=== PATIENT | female | born 1945 | race Caucasian/White ===

== ENCOUNTER → 2017-01-10 | Outpatient (CLI) | payer MEDICARE, OTHER ==
[~2017-01-10] MED LIST: OMNIPAQUE 350 MG/ML, 100ML BOTTLE ONE
== END | disposition home or self-care (01) ==
LOC: CFH 13:18
DX: M19.011 Primary osteoarthritis, right shoulder (principal); R16.1 Splenomegaly, not elsewhere classified; N28.1 Cyst of kidney, acquired; N26.1 Atrophy of kidney (terminal); K86.89 Other specified diseases of pancreas; M47.892 Other spondylosis, cervical region; Z87.19 Personal history of other diseases of the digestive system
CPT/HCPCS: 73200; 74170; Q9967

== ENCOUNTER → 2017-02-09 | Outpatient (CLI) | payer MEDICARE, OTHER ==
[~2017-02-09] MED LIST changes: +ACYC-114 PO; +ALLO100T30 PO; +CARB15DR EACHEYE; +DIFL5DRO LEFTEYE; +ERGO500017 PO; +FURO20TA3 PO; +HYDR2CRE TP; +KETO15CR2 TP; +LIGH1DRO EACHEYE; +METH1TAB13 PO; +NADO20TA PO; -OMNIPAQUE 350 MG/ML, 100ML BOTTLE ONE; +PANT40TA3 PO; +SITA25TA PO; +SODI15DR6 EACHEYE; +SODI3.5O4 EACHEYE; +TACR1CAP4 PO; +URSO500T8 PO
[2017-02-09 15:09] LABS: BLOOD UREA NITROGEN 32 mg/dL (7-18)
[2017-02-09 15:12] LABS: ASPARTATE AMINO TRANSFERASE 21 U/L (15-37)
== END | disposition home or self-care (01) ==
LOC: STAR 13:32
PROVIDERS: ATTEND Internal Medicine
DX: Z01.818 Encounter for other preprocedural examination (principal); R93.5 Abnormal findings on diagnostic imaging of other abdominal regions, including retroperitoneum; I10 Essential (primary) hypertension; E11.9 Type 2 diabetes mellitus without complications; K21.9 Gastro-esophageal reflux disease without esophagitis; E78.5 Hyperlipidemia, unspecified
CPT/HCPCS: 36415; 80053; 93005

== ENCOUNTER 2017-02-13 10:16 | Day surgery (SDC) | payer MEDICARE, OTHER ==
[~2017-02-13] VITALS: Ht 154.9 cm; Wt 90.5 kg
[2017-02-13] MEDS ORDERED: LACTATED RINGERS 1,000 ML IV SCH (11:43)
[2017-02-13 11:52] VITALS: BP 185/93
[2017-02-13] MEDS ORDERED: FENTANYL PF 100 MCG/2ML IV PRN (12:30)
[2017-02-13] MEDS ORDERED: LABETALOL 5MG/ML, 20ML IV PRN (12:30)
[2017-02-13] MEDS ORDERED: HYDROmorphone 1 MG/ML, 1ML IV PRN (12:30)
[2017-02-13] MEDS ORDERED: hydrALAzine 20 MG/ML, 1ML IV PRN (12:30)
[2017-02-13] MEDS ORDERED: OXYcodone 5 MG/5 ML ORAL.SOL UDC PO PRN (12:30)
[2017-02-13] MEDS ORDERED: HYDROcodone/APAP 7.5-325MG/15ML UDC PO PRN (12:30)
[2017-02-13] MEDS ORDERED: ONDANSETRON 2MG/ML, 2ML ONE (12:41)
[2017-02-13] MEDS ORDERED: hydrALAzine 20 MG/ML, 1ML ONE (13:48)
== END 2017-02-13 15:30 ==
LOC: OUT 10:16
PROVIDERS: ATTEND Internal Medicine
DX: I85.00 Esophageal varices without bleeding (principal); K86.2 Cyst of pancreas; K31.9 Disease of stomach and duodenum, unspecified; K31.89 Other diseases of stomach and duodenum; K21.9 Gastro-esophageal reflux disease without esophagitis; I10 Essential (primary) hypertension; D64.9 Anemia, unspecified; Z87.39 Personal history of other diseases of the musculoskeletal system and connective tissue; M10.9 Gout, unspecified; E11.9 Type 2 diabetes mellitus without complications; E78.5 Hyperlipidemia, unspecified; Z98.890 Other specified postprocedural states; Z98.51 Tubal ligation status; Z94.4 Liver transplant status; Z96.659 Presence of unspecified artificial knee joint
CPT/HCPCS: 43259; 82962; J0360; J2405; J7120

== ENCOUNTER → 2017-08-02 | Outpatient (CLI) | payer MEDICARE, OTHER | END | disposition home or self-care (01) | LOC: CFH 06:49 | PROVIDERS: ATTEND Internal Medicine | DX: N26.1 Atrophy of kidney (terminal) (principal); R16.1 Splenomegaly, not elsewhere classified; K74.3 Primary biliary cirrhosis; Z94.9 Transplanted organ and tissue status, unspecified | CPT/HCPCS: 76700 ==

== ENCOUNTER → 2017-08-15 | Outpatient (CLI) | payer MEDICARE, OTHER | END | disposition home or self-care (01) | LOC: CFH 08:51 | PROVIDERS: ATTEND Family Medicine | DX: Z12.31 Encounter for screening mammogram for malignant neoplasm of breast (principal); Z13.820 Encounter for screening for osteoporosis; N95.9 Unspecified menopausal and perimenopausal disorder | CPT/HCPCS: 77080; 77067 ==

== ENCOUNTER → 2017-09-19 | Outpatient (CLI) | payer MEDICARE, OTHER | END | disposition home or self-care (01) | LOC: CFH 12:50 | PROVIDERS: ATTEND Family Medicine | DX: I50.9 Heart failure, unspecified (principal) | CPT/HCPCS: 71046 ==

== ENCOUNTER → 2017-10-02 | Outpatient (CLI) | payer MEDICARE, OTHER ==
[~2017-10-02] MED LIST changes: -CARB15DR EACHEYE; +CARB15DR3 EACHEYE
== END ==
LOC: CVU 10:28
PROVIDERS: ATTEND Family Medicine
DX: I31.3 Pericardial effusion (noninflammatory) (principal); I10 Essential (primary) hypertension
CPT/HCPCS: 93306

== ENCOUNTER 2017-10-19 14:51 | Inpatient (IN) | payer MEDICARE, OTHER ==
[~2017-10-19] VITALS: Ht 149.9 cm; Wt 89.7 kg
[2017-10-19] MEDS ORDERED: SODIUM CHLORIDE FLUSH 10ML SYR IVF ONE ×2 (15:30→17:30)
[2017-10-19 15:46] LABS: ALANINE AMINOTRANSFERASE 18 U/L (12-78); ALBUMIN 3.1 g/dL (3.4-5.0); ANION GAP 5 mmol/L (5-15); CALCIUM 8.9 mg/dL (8.5-10.1); CHLORIDE 108 mmol/L (98-107)
[2017-10-19 15:51] LABS: ALKALINE PHOSPHATASE 128 U/L (45-117); BILIRUBIN,TOTAL 1.3 mg/dL (0.2-1.0); CREATININE 1.12 mg/dL (0.55-1.02); TOTAL PROTEIN 6.9 g/dL (6.4-8.2); TROPONIN I < 0.015 ng/mL (0.000-0.045)
[2017-10-19 15:59] LABS: INTERNATIONAL NORMALIZED RATIO 0.94 (0.93-1.1); PROTHROMBIN TIME 9.8 Seconds (9.6-11.5)
[2017-10-19 16:09] LABS: BASOPHILS # (AUTO) 0.02 x10^3/uL (0-0.1); BASOPHILS % (AUTO) 0 % (0-1); EOSINOPHILS # (AUTO) 0.23 x10^3/uL (0-0.4); EOSINOPHILS % (AUTO) 4 % (1-7); LYMPHOCYTES # (AUTO) 0.59 x10^3/uL (1-3.4); LYMPHOCYTES % (AUTO) 11 % (22-44); MD MORPH REVIEW ONLY; MEAN CORPUSCULAR HEMOGLOBIN 25.2 pg (27.0-34.8); MEAN CORPUSCULAR HGB CONC 31.3 g/dL (32.4-35.8); MEAN CORPUSCULAR VOLUME 80.5 fL (80-100); MEAN PLATELET VOLUME 10.2 fL (7.4-10.4); MONOCYTES # (AUTO) 0.35 x10^3/uL (0.2-0.8); MONOCYTES % (AUTO) 6 % (2-9); NEUTROPHILS # (AUTO) 4.18 x10^3/uL (1.8-6.8); NEUTROPHILS % (AUTO) 78 % (42-75); PLATELET COUNT 91 x10^3/uL (130-400); RED BLOOD COUNT 4.17 x10^6/uL (3.82-5.3); RED CELL DISTRIBUTION WIDTH 19.1 % (9.6-15.2)
[2017-10-19 16:10] LABS: ANISOCYTOSIS 1+; HYPOCHROMIA 1+; POLYCHROMASIA 1+
[2017-10-19 16:11] LABS: <PLATELET ESTIMATE> DECREASED; LARGE PLATELETS 1+
[2017-10-19] MEDS ORDERED: HYDROCORTISONE TP SCH (18:30)
[2017-10-19] MEDS: ENOXAPARIN 40 MG/0.4 ML SQ SCH (18:30)
[2017-10-19] MEDS ORDERED: ERGOCALCIFEROL 50,000 UNIT CAPSULE PO SCH (18:30)
[2017-10-19] MEDS ORDERED: IODOQUINOL TP SCH (18:30)
[2017-10-19] MEDS ORDERED: ALOE TP SCH (18:30)
[2017-10-19] MEDS ORDERED: hydrALAzine 20 MG/ML, 1ML IVPush PRN (18:30)
[2017-10-19] MEDS ORDERED: TEMPLATE NON-FORMULARY MED. (Carboxymethylcellulose Sodium (Refresh Tears) 1 DROP) EACHEYE PRN ×2 (18:30→21:00)
[2017-10-19] MEDS ORDERED: ONDANSETRON 2MG/ML, 2ML IVPush PRN (18:30)
[2017-10-19 19:17] LABS: FREE T4 (FREE THYROXINE) 1.13 ng/dL (0.76-1.46); THYROID STIMULATING HORMONE 2.51 mIU/L (0.358-3.740)
[2017-10-19 19:28] LABS: HEMOGLOBIN A1C 7.5 % (4.2-6.3)
[2017-10-19] MEDS: ACYCLOVIR 400 MG TABLET PO SCH (20:46)
[2017-10-19 20:51] VITALS: BP 149/81
[2017-10-19] MEDS ORDERED: URSODIOL 250 MG TABLET PO SCH (21:00)
[2017-10-19] MEDS ORDERED: VICTOZA SQ SCH (22:00)
[2017-10-19] MEDS ORDERED: predniSOLONE OPHTH. 1%,1ML OP SCH ×2 (22:00)
[2017-10-19] MEDS: TACROLIMUS 1 MG CAPSULE PO SCH (22:12)
[2017-10-19] MEDS: INSULIN LISPRO 100 UNITS/ML, PEN SQ-INSULIN SCH (22:16)
[2017-10-20 00:01] LABS: CULTURE INDICATED? YES; MICROSCOPIC INDICATED
[2017-10-20 00:44] VITALS: BP 136/75
[2017-10-20] MEDS ORDERED: CEFTRIAXONE PMX 1GM/50ML 50 ML IV SCH (02:00)
[2017-10-20 04:43] LABS: MEAN CORPUSCULAR HEMOGLOBIN 25.8 pg (27.0-34.8); MEAN CORPUSCULAR HGB CONC 31.7 g/dL (32.4-35.8); MEAN CORPUSCULAR VOLUME 81.5 fL (80-100); RED BLOOD COUNT 3.83 x10^6/uL (3.82-5.3); RED CELL DISTRIBUTION WIDTH 20.5 % (9.6-15.2)
[2017-10-20 04:56] LABS: ALBUMIN 2.7 g/dL (3.4-5.0); ANION GAP 5 mmol/L (5-15); CALCIUM 8.7 mg/dL (8.5-10.1); CHLORIDE 110 mmol/L (98-107)
[2017-10-20 05:00] LABS: ALANINE AMINOTRANSFERASE 14 U/L (12-78); ALKALINE PHOSPHATASE 108 U/L (45-117); CHOL/HDL RATIO 3.2; CHOLESTEROL, TOTAL 138 mg/dL (140-239); CREATININE 1.03 mg/dL (0.55-1.02); HDL CHOL % 31 % (28-40); HDL CHOLESTEROL (DIRECT) 43 mg/dL (40-60); LDL CHOLESTEROL,CALCULATED 64 mg/dL (54-169); LDL/HDL RATIO 1.5 (0.5-3.0); TRIGLYCERIDES 154 mg/dL (50-200); VLDL CHOLESTEROL 31 mg/dL (0-25)
[2017-10-20 05:05] LABS: BASOPHILS # (AUTO) 0.05 x10^3/uL (0-0.1); BASOPHILS % (AUTO) 1 % (0-1); EOSINOPHILS # (AUTO) 0.15 x10^3/uL (0-0.4); EOSINOPHILS % (AUTO) 2 % (1-7); LYMPHOCYTES # (AUTO) 0.47 x10^3/uL (1-3.4); LYMPHOCYTES % (AUTO) 8 % (22-44); MD SCAN; MEAN PLATELET VOLUME 9.4 fL (7.4-10.4); MONOCYTES # (AUTO) 0.29 x10^3/uL (0.2-0.8); MONOCYTES % (AUTO) 5 % (2-9); NEUTROPHILS # (AUTO) 5.35 x10^3/uL (1.8-6.8); NEUTROPHILS % (AUTO) 85 % (42-75); PLATELET COUNT 78 x10^3/uL (130-400)
[2017-10-20] MEDS ORDERED: ASPIRIN 81 MG TABLET EC PO SCH (06:00)
[2017-10-20] MEDS: INSULIN LISPRO 100 UNITS/ML, PEN SQ-INSULIN SCH ×4 (07:58→20:51)
[2017-10-20 08:00] VITALS: BP 138/70
[2017-10-20] MEDS: ACYCLOVIR 400 MG TABLET PO SCH (08:01)
[2017-10-20] MEDS: DIFLUPREDNATE LEFTEYE SCH (08:08)
[2017-10-20 08:52] LABS: CREATININE,URINE RANDOM 92.6 mg/dL
[2017-10-20] MEDS ORDERED: ALLOPURINOL 100 MG TABLET PO SCH (09:00)
[2017-10-20] MEDS ORDERED: FUROSEMIDE 40 MG/4 ML IV SCH (09:00)
[2017-10-20] MEDS ORDERED: PANTOPROZOLE 40MG TABLET PO SCH (09:00)
[2017-10-20] MEDS ORDERED: SODIUM CHLORIDE EACHEYE SCH (09:00)
[2017-10-20] MEDS ORDERED: [UNRECOGNIZED DRUG - OTHER] EACHEYE SCH (09:00)
[2017-10-20] MEDS ORDERED: URSODIOL 250 MG TABLET PO SCH (09:00)
[2017-10-20] MEDS ORDERED: METHENAMINE HIPPURATE 1 GM TABLET PO SCH ×3 (09:00→09:30)
[2017-10-20] MEDS ORDERED: VICTOZA 1.8 MG SQ SCH (09:00)
[2017-10-20] MEDS: TACROLIMUS 1 MG CAPSULE PO SCH ×2 (09:30→22:00)
[2017-10-20] MEDS ORDERED: METHENAMINE HIPPURATE 1 GM TABLET PO ONE (10:00)
[2017-10-20 11:24] LABS: CLOSTRIDIUM DIFFICILE ANTIGEN NEGATIVE; CLOSTRIDIUM DIFFICILE TOXIN NEGATIVE (Negative)
[2017-10-20] MEDS: CHLORTHALIDONE 25 MG TABLET PO SCH (11:35)
[2017-10-20 13:00] VITALS: BP 123/75
[2017-10-20] MEDS: CEFTRIAXONE PMX 2GM/50ML 50 ML IV SCH (14:50)
[2017-10-20] MEDS: METOPROLOL TARTRATE 25 MG TABLET PO SCH ×2 (16:22→20:51)
[2017-10-20 16:23] VITALS: BP 120/69
[2017-10-20] MEDS: ENOXAPARIN 40 MG/0.4 ML SQ SCH (16:30)
[2017-10-20] MEDS ORDERED: ALLO300T PO (17:02)
[2017-10-20] MEDS ORDERED: ACYC-114 PO (17:02)
[2017-10-20] MEDS ORDERED: URSO300C27 PO (17:02)
[2017-10-20] MEDS ORDERED: VICTOZA SQ (17:02)
[2017-10-20] MEDS ORDERED: METH1TAB13 PO (17:02)
[2017-10-20] MEDS ORDERED: PRED1DRO LEFTEYE (17:02)
[2017-10-20] MEDS ORDERED: CHOL100011 PO (17:02)
[2017-10-20] MEDS ORDERED: PANT20TA2 PO (17:02)
[2017-10-20] MEDS ORDERED: NADO20TA PO (17:02)
[2017-10-20] MEDS ORDERED: TACR1CAP4 PO (17:02)
[2017-10-20] MEDS ORDERED: URSO250T9 PO (17:02)
[2017-10-20] MEDS: URSODIOL 250 MG TABLET PO SCH (17:09)
[2017-10-20] MEDS: predniSOLONE OPHTH. 1%,1ML OP SCH (18:23)
[2017-10-20 18:42] VITALS: BP 112/69
[2017-10-20] MEDS: VICTOZA 1.8 MG SQ SCH (20:51)
[2017-10-21 02:22] VITALS: BP 124/69
[2017-10-21 05:29] LABS: ALANINE AMINOTRANSFERASE 14 U/L (12-78); ALBUMIN 2.7 g/dL (3.4-5.0); ANION GAP 6 mmol/L (5-15); CALCIUM 8.2 mg/dL (8.5-10.1); CHLORIDE 108 mmol/L (98-107); CREATININE 1.07 mg/dL (0.55-1.02)
[2017-10-21 05:32] LABS: ALKALINE PHOSPHATASE 111 U/L (45-117); BILIRUBIN,TOTAL 0.7 mg/dL (0.2-1.0); TOTAL PROTEIN 6.2 g/dL (6.4-8.2)
[2017-10-21] MEDS: predniSOLONE OPHTH. 1%,1ML OP SCH ×2 (07:00→18:49)
[2017-10-21] MEDS: INSULIN LISPRO 100 UNITS/ML, PEN SQ-INSULIN SCH ×4 (07:00→21:00)
[2017-10-21 08:00] VITALS: BP 129/74
[2017-10-21] MEDS: URSODIOL 250 MG TABLET PO SCH ×2 (08:14→16:06)
[2017-10-21] MEDS: ACYCLOVIR 400 MG TABLET PO SCH ×2 (08:14→16:05)
[2017-10-21] MEDS: PANTOPROZOLE 40MG TABLET PO SCH (08:15)
[2017-10-21] MEDS: CHLORTHALIDONE 25 MG TABLET PO SCH (08:35)
[2017-10-21] MEDS: METOPROLOL TARTRATE 25 MG TABLET PO SCH ×2 (08:35→21:00)
[2017-10-21] MEDS: METHENAMINE HIPPURATE 1 GM TABLET PO SCH (08:51)
[2017-10-21] MEDS: DIFLUPREDNATE LEFTEYE SCH (09:00)
[2017-10-21] MEDS ORDERED: POTASSIUM CHLORIDE 20 MEQ TAB.ER.PRT PO ONE (09:30)
[2017-10-21] MEDS: TACROLIMUS 1 MG CAPSULE PO SCH ×2 (10:00→22:00)
[2017-10-21 14:32] VITALS: BP 121/75
[2017-10-21] MEDS ORDERED: ALLOPURINOL 100 MG TABLET PO SCH (16:00)
[2017-10-21] MEDS: ENOXAPARIN 40 MG/0.4 ML SQ SCH (17:40)
[2017-10-21] MEDS: CEFTRIAXONE PMX 2GM/50ML 50 ML IV SCH (18:48)
[2017-10-21 19:15] VITALS: BP 129/77
[2017-10-21] MEDS: VICTOZA 1.8 MG SQ SCH (21:00)
[2017-10-22 01:12] VITALS: BP 130/78
[2017-10-22 05:30] LABS: MEAN CORPUSCULAR HEMOGLOBIN 26.2 pg (27.0-34.8); MEAN CORPUSCULAR HGB CONC 31.9 g/dL (32.4-35.8); MEAN CORPUSCULAR VOLUME 82.3 fL (80-100); MEAN PLATELET VOLUME 10.3 fL (7.4-10.4); PLATELET COUNT 68 x10^3/uL (130-400); RED BLOOD COUNT 3.72 x10^6/uL (3.82-5.3); RED CELL DISTRIBUTION WIDTH 19.9 % (9.6-15.2)
[2017-10-22 05:34] LABS: ALBUMIN 2.7 g/dL (3.4-5.0); ANION GAP 7 mmol/L (5-15); CALCIUM 9.1 mg/dL (8.5-10.1); CHLORIDE 108 mmol/L (98-107)
[2017-10-22 05:38] LABS: ALANINE AMINOTRANSFERASE 13 U/L (12-78); ALKALINE PHOSPHATASE 107 U/L (45-117); BILIRUBIN,TOTAL 0.6 mg/dL (0.2-1.0)
[2017-10-22 05:58] LABS: BASOPHILS # (AUTO) 0.01 x10^3/uL (0-0.1); BASOPHILS % (AUTO) 0 % (0-1); EOSINOPHILS # (AUTO) 0.28 x10^3/uL (0-0.4); EOSINOPHILS % (AUTO) 5 % (1-7); LYMPHOCYTES # (AUTO) 0.51 x10^3/uL (1-3.4); LYMPHOCYTES % (AUTO) 9 % (22-44); MD SCAN; MONOCYTES # (AUTO) 0.42 x10^3/uL (0.2-0.8); MONOCYTES % (AUTO) 7 % (2-9); NEUTROPHILS # (AUTO) 4.44 x10^3/uL (1.8-6.8); NEUTROPHILS % (AUTO) 79 % (42-75)
[2017-10-22 07:02] VITALS: BP 139/84
[2017-10-22] MEDS: INSULIN LISPRO 100 UNITS/ML, PEN SQ-INSULIN SCH ×2 (07:24→11:18)
[2017-10-22] MEDS: DIFLUPREDNATE LEFTEYE SCH (07:44)
[2017-10-22] MEDS: PANTOPROZOLE 40MG TABLET PO SCH (08:11)
[2017-10-22] MEDS: predniSOLONE OPHTH. 1%,1ML OP SCH (08:11)
[2017-10-22] MEDS: METHENAMINE HIPPURATE 1 GM TABLET PO SCH (08:11)
[2017-10-22] MEDS: ACYCLOVIR 400 MG TABLET PO SCH (08:12)
[2017-10-22] MEDS: CHLORTHALIDONE 25 MG TABLET PO SCH (08:13)
[2017-10-22] MEDS: METOPROLOL TARTRATE 25 MG TABLET PO SCH (08:13)
[2017-10-22] MEDS: TACROLIMUS 1 MG CAPSULE PO SCH (10:06)
[2017-10-22] MEDS ORDERED: CHLO25TA PO (10:11)
[2017-10-22] MEDS ORDERED: CEFD300C37 PO (10:11)
[2017-10-22] MEDS ORDERED: LACT1CAP24 PO (10:11)
[2017-10-22] MEDS ORDERED: METO25TA35 PO (10:11)
[2017-10-22] MEDS: URSODIOL 250 MG TABLET PO SCH (11:41)
[2017-10-22 13:09] VITALS: BP 146/84
[2017-10-23] MEDS ORDERED: ERGOCALCIFEROL 50,000 UNIT CAPSULE PO SCH (08:00)
== END 2017-10-22 15:48 | disposition home or self-care (01) | DRG 291 ==
LOC: ED 17:21 → EDIP 17:22 → SUATTDRO 17:27 → ED 17:39 → 5SO 20:21
PROVIDERS: ADMIT Internal Medicine; ATTEND Internal Medicine
PROC: 0T9B70Z Drainage of Bladder with Drainage Device, Via Natural or Artificial Opening (ICD-10-PCS; principal; 2017-10-19)
DX: I13.0 Hypertensive heart and chronic kidney disease with heart failure and stage 1 through stage 4 chronic kidney disease, or unspecified chronic kidney disease (principal); J96.91 Respiratory failure, unspecified with hypoxia; N17.9 Acute kidney failure, unspecified; D69.6 Thrombocytopenia, unspecified; E11.22 Type 2 diabetes mellitus with diabetic chronic kidney disease; Z94.4 Liver transplant status; G45.9 Transient cerebral ischemic attack, unspecified; E66.01 Morbid (severe) obesity due to excess calories; N18.3 Chronic kidney disease, stage 3 (moderate); E87.70 Fluid overload, unspecified; I50.23 Acute on chronic systolic (congestive) heart failure; I85.00 Esophageal varices without bleeding; B96.20 Unspecified Escherichia coli [E. coli] as the cause of diseases classified elsewhere; D64.9 Anemia, unspecified; E55.9 Vitamin D deficiency, unspecified; Z96.651 Presence of right artificial knee joint; J32.9 Chronic sinusitis, unspecified; E78.5 Hyperlipidemia, unspecified; E87.6 Hypokalemia; K43.9 Ventral hernia without obstruction or gangrene; K74.3 Primary biliary cirrhosis; M10.9 Gout, unspecified; N27.0 Small kidney, unilateral; N31.9 Neuromuscular dysfunction of bladder, unspecified; Z80.52 Family history of malignant neoplasm of bladder; Z82.49 Family history of ischemic heart disease and other diseases of the circulatory system; Z83.3 Family history of diabetes mellitus; Z87.891 Personal history of nicotine dependence; Z90.49 Acquired absence of other specified parts of digestive tract; Z94.7 Corneal transplant status; Z88.1 Allergy status to other antibiotic agents; Z88.8 Allergy status to other drugs, medicaments and biological substances
CPT/HCPCS: 36415; 70450; 70551; 71045; 76770; 80053; 80061; 80197; 81001; 82140; 82570; 82962; 83036; 83605; 83735; 83880; 84100; 84156; 84439; 84443; 84484; 85025; 85610; 85730; 87077; 87086; 87186; 87324; 93005; 93880; 93970; 99285; J0696; J1940; J7507

== ENCOUNTER 2017-11-09 09:40 | Inpatient (IN) | payer MEDICARE, OTHER ==
[~2017-11-09] VITALS: Ht 149.9 cm; Wt 85.5 kg
[~2017-11-09 09:40] MED LIST changes: +ALLO300T PO; +CEFD300C37 PO; +CHLO25TA PO; +CHOL100011 PO; +LACT1CAP24 PO; +METO25TA35 PO; +PANT20TA2 PO; +PRED1DRO LEFTEYE; +URSO250T9 PO; +URSO300C27 PO; +VICTOZA SQ
[2017-11-09] MEDS ORDERED: SODIUM CHLORIDE FLUSH 10ML SYR IVF ONE (11:00)
[2017-11-09 11:07] LABS: MEAN CORPUSCULAR HEMOGLOBIN 26.8 pg (27.0-34.8); MEAN CORPUSCULAR HGB CONC 31.9 g/dL (32.4-35.8); RED BLOOD COUNT 3.96 x10^6/uL (3.82-5.3); RED CELL DISTRIBUTION WIDTH 22.6 % (9.6-15.2)
[2017-11-09 11:29] LABS: ALANINE AMINOTRANSFERASE 17 U/L (12-78); ALBUMIN 3.3 g/dL (3.4-5.0); ANION GAP 4 mmol/L (5-15); CHLORIDE 108 mmol/L (98-107); CREATININE 1.17 mg/dL (0.55-1.02)
[2017-11-09 11:30] LABS: TROPONIN I < 0.015 ng/mL (0.000-0.045)
[2017-11-09 11:32] LABS: BASOPHILS % (AUTO) 0 % (0-1); EOSINOPHILS # (AUTO) 0.14 x10^3/uL (0-0.4); EOSINOPHILS % (AUTO) 2 % (1-7); LYMPHOCYTES # (AUTO) 0.49 x10^3/uL (1-3.4); LYMPHOCYTES % (AUTO) 7 % (22-44); MD MORPH REVIEW ONLY; MONOCYTES # (AUTO) 0.33 x10^3/uL (0.2-0.8); MONOCYTES % (AUTO) 5 % (2-9); NEUTROPHILS # (AUTO) 5.76 x10^3/uL (1.8-6.8); NEUTROPHILS % (AUTO) 86 % (42-75); PLATELET COUNT 69 x10^3/uL (130-400)
[2017-11-09 11:33] LABS: <PLATELET ESTIMATE> DECREASED; ALKALINE PHOSPHATASE 131 U/L (45-117); ANISOCYTOSIS 1+; BILIRUBIN,TOTAL 1.3 mg/dL (0.2-1.0); HYPOCHROMIA 1+; LARGE PLATELETS 1+; POLYCHROMASIA 1+; TOTAL PROTEIN 7.1 g/dL (6.4-8.2)
[2017-11-09 11:34] LABS: STOMATOCYTES 1+
[2017-11-09 11:57] LABS: MICROSCOPIC INDICATED
[2017-11-09 12:56] LABS: CULTURE INDICATED? YES
[2017-11-09] MEDS ORDERED: CEFTRIAXONE PMX 1GM/50ML 50 ML IVPB ONE (13:00)
[2017-11-09] MEDS ORDERED: CEFTRIAXONE PMX 1GM/50ML 50 ML ONE (13:03)
[2017-11-09] MEDS ORDERED: SODIUM CHLORIDE FLUSH 10ML SYR IVF PRN (14:00)
[2017-11-09] MEDS ORDERED: CARB15DR3 EACHEYE (14:47)
[2017-11-09] MEDS ORDERED: SPIR25TA PO (14:47)
[2017-11-09] MEDS ORDERED: CHOL500050 PO (14:47)
[2017-11-09] MEDS ORDERED: [UNRECOGNIZED DRUG - REMARK] EACHEYE (14:47)
[2017-11-09] MEDS ORDERED: LACT1CAP35 PO (14:47)
[2017-11-09] MEDS ORDERED: ketoconazole cream TD (14:47)
[2017-11-09] MEDS ORDERED: ACETAMINOPHEN 325 MG TABLET PO PRN (15:00)
[2017-11-09] MEDS ORDERED: hydrALAzine 20 MG/ML, 1ML IVPush PRN (15:00)
[2017-11-09] MEDS ORDERED: DEXTROSE 50%, 50ML SYRINGE IVPush PRN (15:00)
[2017-11-09] MEDS ORDERED: GLUCAGON 1 MG IM PRN (15:00)
[2017-11-09] MEDS ORDERED: PHENAZOPYRIDINE 200 MG TABLET PO PRN (15:00)
[2017-11-09] MEDS ORDERED: DEXTROSE 4 GM TAB.CHEW PO PRN (15:00)
[2017-11-09] MEDS ORDERED: LABETALOL 5MG/ML, 20ML IVPush PRN (15:00)
[2017-11-09] MEDS ORDERED: ONDANSETRON ODT 4 MG PO PRN (15:00)
[2017-11-09] MEDS ORDERED: BISACODYL 10 MG SUPP PR PRN (15:00)
[2017-11-09] MEDS ORDERED: POLYETHYLENE GLYCOL 17 GM PACKET PO PRN (15:00)
[2017-11-09 15:58] LABS: CULTURE INDICATED? YES; MICROSCOPIC AUTO
[2017-11-09] MEDS: INSULIN LISPRO 100 UNITS/ML, PEN SQ-INSULIN SCH ×2 (16:00→21:15)
[2017-11-09] MEDS ORDERED: ICN URSODIOL 20 MG/ML ORAL PO SCH (16:00)
[2017-11-09] MEDS ORDERED: FUROSEMIDE 20 MG/2 ML IV ONE (16:00)
[2017-11-09] MEDS ORDERED: URSODIOL 250 MG TABLET PO SCH (16:00)
[2017-11-09] MEDS: HEPARIN 5,000 UNITS/ML, 1ML SQ SCH (17:13)
[2017-11-09] MEDS: SPIRONOLACTONE 25 MG TABLET PO SCH (17:14)
[2017-11-09] MEDS: ALLOPURINOL 100 MG TABLET PO SCH (17:15)
[2017-11-09] MEDS: LACTOBACILLUS CHEW TABLET PO SCH (17:15)
[2017-11-09] MEDS: ACYCLOVIR 400 MG TABLET PO SCH (17:15)
[2017-11-09] MEDS: METOPROLOL TARTRATE 25 MG TABLET PO SCH (17:15)
[2017-11-09] MEDS: URSODIOL 250 MG TABLET PO SCH (17:30)
[2017-11-09] MEDS ORDERED: predniSOLONE OPHTH. 1%,1ML LEFTEYE SCH (19:00)
[2017-11-09 20:20] VITALS: BP 148/74
[2017-11-09] MEDS ORDERED: DOCUSATE 100 MG CAPSULE PO PRN (21:00)
[2017-11-09] MEDS ORDERED: SPIRONOLACTONE 25 MG TABLET PO SCH (21:00)
[2017-11-09] MEDS ORDERED: METOPROLOL TARTRATE 25 MG TABLET PO SCH (21:00)
[2017-11-09] MEDS: SODIUM CHLORIDE FLUSH 10ML SYR IVF SCH (21:15)
[2017-11-09] MEDS: predniSOLONE OPHTH. 1%,1ML LEFTEYE SCH (21:19)
[2017-11-09] MEDS: TACROLIMUS 1 MG CAPSULE PO SCH (22:20)
[2017-11-10 01:03] LABS: CLOSTRIDIUM DIFFICILE ANTIGEN NEGATIVE; CLOSTRIDIUM DIFFICILE TOXIN NEGATIVE (Negative)
[2017-11-10 01:18] VITALS: BP 147/75
[2017-11-10 05:58] LABS: ALANINE AMINOTRANSFERASE 14 U/L (12-78); ALBUMIN 2.9 g/dL (3.4-5.0); ANION GAP 6 mmol/L (5-15); CALCIUM 8.7 mg/dL (8.5-10.1); CHLORIDE 110 mmol/L (98-107); CREATININE 1.15 mg/dL (0.55-1.02)
[2017-11-10 06:00] LABS: ALKALINE PHOSPHATASE 108 U/L (45-117); TOTAL PROTEIN 6.1 g/dL (6.4-8.2)
[2017-11-10 06:01] LABS: MEAN CORPUSCULAR HEMOGLOBIN 26.4 pg (27.0-34.8); MEAN CORPUSCULAR HGB CONC 31.6 g/dL (32.4-35.8); MEAN CORPUSCULAR VOLUME 83.7 fL (80-100); MEAN PLATELET VOLUME 9.8 fL (7.4-10.4); PLATELET COUNT 68 x10^3/uL (130-400); RED BLOOD COUNT 3.62 x10^6/uL (3.82-5.3); RED CELL DISTRIBUTION WIDTH 22.4 % (9.6-15.2)
[2017-11-10 06:28] LABS: BASOPHILS # (AUTO) 0.02 x10^3/uL (0-0.1); BASOPHILS % (AUTO) 0 % (0-1); EOSINOPHILS # (AUTO) 0.18 x10^3/uL (0-0.4); EOSINOPHILS % (AUTO) 3 % (1-7); LYMPHOCYTES # (AUTO) 0.57 x10^3/uL (1-3.4); LYMPHOCYTES % (AUTO) 9 % (22-44); MD SCAN; MONOCYTES # (AUTO) 0.32 x10^3/uL (0.2-0.8); MONOCYTES % (AUTO) 5 % (2-9); NEUTROPHILS # (AUTO) 5.36 x10^3/uL (1.8-6.8); NEUTROPHILS % (AUTO) 83 % (42-75)
[2017-11-10] MEDS: LACTOBACILLUS CHEW TABLET PO SCH ×3 (06:45→16:13)
[2017-11-10] MEDS: predniSOLONE OPHTH. 1%,1ML LEFTEYE SCH ×2 (06:46→21:16)
[2017-11-10] MEDS: INSULIN LISPRO 100 UNITS/ML, PEN SQ-INSULIN SCH ×4 (06:47→21:17)
[2017-11-10 07:04] VITALS: BP 144/79
[2017-11-10] MEDS: URSODIOL 250 MG TABLET PO SCH ×2 (08:00→16:14)
[2017-11-10] MEDS ORDERED: URSODIOL 250 MG TABLET PO SCH ×2 (08:00→16:00)
[2017-11-10] MEDS: ACYCLOVIR 400 MG TABLET PO SCH ×2 (08:00→16:12)
[2017-11-10] MEDS: HEPARIN 5,000 UNITS/ML, 1ML SQ SCH ×2 (08:00)
[2017-11-10] MEDS: METHENAMINE MANDELATE HOMEMEDPO SCH (08:00)
[2017-11-10] MEDS: SPIRONOLACTONE 25 MG TABLET PO SCH ×2 (08:01→16:13)
[2017-11-10] MEDS: METOPROLOL TARTRATE 25 MG TABLET PO SCH ×2 (08:01→16:14)
[2017-11-10] MEDS: CHLORTHALIDONE 25 MG TABLET PO SCH (08:02)
[2017-11-10] MEDS: SODIUM CHLORIDE FLUSH 10ML SYR IVF SCH ×2 (09:00→21:16)
[2017-11-10] MEDS ORDERED: CHLORTHALIDONE 25 MG TABLET PO SCH (09:00)
[2017-11-10] MEDS: TACROLIMUS 1 MG CAPSULE PO SCH ×2 (10:00→21:18)
[2017-11-10] MEDS: CEFTRIAXONE PMX 1GM/50ML 50 ML IV SCH (13:41)
[2017-11-10 15:34] VITALS: BP 129/76
[2017-11-10] MEDS: ALLOPURINOL 100 MG TABLET PO SCH (16:13)
[2017-11-10 19:57] VITALS: BP 124/75
[2017-11-11 00:55] VITALS: BP 155/82
[2017-11-11 05:45] LABS: MEAN CORPUSCULAR HEMOGLOBIN 26.5 pg (27.0-34.8); MEAN CORPUSCULAR HGB CONC 31.5 g/dL (32.4-35.8); MEAN PLATELET VOLUME 10.5 fL (7.4-10.4); PLATELET COUNT 75 x10^3/uL (130-400); RED BLOOD COUNT 3.58 x10^6/uL (3.82-5.3); RED CELL DISTRIBUTION WIDTH 22.1 % (9.6-15.2)
[2017-11-11 05:48] LABS: ANION GAP 7 mmol/L (5-15); CALCIUM 9.1 mg/dL (8.5-10.1); CHLORIDE 107 mmol/L (98-107)
[2017-11-11 05:50] LABS: CREATININE 1.26 mg/dL (0.55-1.02)
[2017-11-11 07:27] LABS: BASOPHILS # (AUTO) 0.02 x10^3/uL (0-0.1); BASOPHILS % (AUTO) 0 % (0-1); EOSINOPHILS % (AUTO) 3 % (1-7); LYMPHOCYTES # (AUTO) 0.68 x10^3/uL (1-3.4); LYMPHOCYTES % (AUTO) 12 % (22-44); MD SCAN; MONOCYTES # (AUTO) 0.39 x10^3/uL (0.2-0.8); MONOCYTES % (AUTO) 7 % (2-9); NEUTROPHILS # (AUTO) 4.63 x10^3/uL (1.8-6.8); NEUTROPHILS % (AUTO) 78 % (42-75)
[2017-11-11] MEDS: predniSOLONE OPHTH. 1%,1ML LEFTEYE SCH ×2 (07:38→20:53)
[2017-11-11] MEDS: LACTOBACILLUS CHEW TABLET PO SCH ×3 (07:38→16:12)
[2017-11-11] MEDS: INSULIN LISPRO 100 UNITS/ML, PEN SQ-INSULIN SCH ×4 (07:38→21:05)
[2017-11-11] MEDS: METHENAMINE MANDELATE HOMEMEDPO SCH (08:07)
[2017-11-11] MEDS: SPIRONOLACTONE 25 MG TABLET PO SCH ×2 (08:07→16:12)
[2017-11-11] MEDS: URSODIOL 250 MG TABLET PO SCH ×2 (08:08→16:13)
[2017-11-11] MEDS: CHLORTHALIDONE 25 MG TABLET PO SCH (08:08)
[2017-11-11] MEDS: ACYCLOVIR 400 MG TABLET PO SCH ×2 (08:08→16:12)
[2017-11-11] MEDS: METOPROLOL TARTRATE 25 MG TABLET PO SCH ×2 (08:08→16:13)
[2017-11-11] MEDS: SODIUM CHLORIDE FLUSH 10ML SYR IVF SCH ×2 (08:09→22:27)
[2017-11-11 09:33] VITALS: BP 129/80
[2017-11-11] MEDS: TACROLIMUS 1 MG CAPSULE PO SCH ×2 (10:01→22:27)
[2017-11-11] MEDS: CEFTRIAXONE PMX 1GM/50ML 50 ML IV SCH (14:17)
[2017-11-11 15:41] VITALS: BP 147/84
[2017-11-11] MEDS: ALLOPURINOL 100 MG TABLET PO SCH (16:13)
[2017-11-11 21:48] VITALS: BP 135/75
[2017-11-12 01:15] VITALS: BP 129/74
[2017-11-12 05:28] LABS: ANION GAP 5 mmol/L (5-15); CALCIUM 8.8 mg/dL (8.5-10.1); CHLORIDE 106 mmol/L (98-107)
[2017-11-12 05:29] LABS: CREATININE 1.05 mg/dL (0.55-1.02)
[2017-11-12 05:56] LABS: BASOPHILS # (AUTO) 0.01 x10^3/uL (0-0.1); BASOPHILS % (AUTO) 0 % (0-1); EOSINOPHILS # (AUTO) 0.17 x10^3/uL (0-0.4); EOSINOPHILS % (AUTO) 3 % (1-7); LYMPHOCYTES % (AUTO) 12 % (22-44); MD SCAN; MEAN CORPUSCULAR HEMOGLOBIN 26.6 pg (27.0-34.8); MEAN CORPUSCULAR HGB CONC 31.8 g/dL (32.4-35.8); MEAN CORPUSCULAR VOLUME 83.7 fL (80-100); MEAN PLATELET VOLUME 10.6 fL (7.4-10.4); MONOCYTES # (AUTO) 0.38 x10^3/uL (0.2-0.8); MONOCYTES % (AUTO) 8 % (2-9); NEUTROPHILS # (AUTO) 3.81 x10^3/uL (1.8-6.8); NEUTROPHILS % (AUTO) 77 % (42-75); PLATELET COUNT 73 x10^3/uL (130-400); RED BLOOD COUNT 3.48 x10^6/uL (3.82-5.3); RED CELL DISTRIBUTION WIDTH 22.1 % (9.6-15.2)
[2017-11-12] MEDS: predniSOLONE OPHTH. 1%,1ML LEFTEYE SCH ×2 (05:58→21:00)
[2017-11-12] MEDS: LACTOBACILLUS CHEW TABLET PO SCH ×3 (05:58→16:22)
[2017-11-12] MEDS: INSULIN LISPRO 100 UNITS/ML, PEN SQ-INSULIN SCH ×4 (06:20→21:03)
[2017-11-12 07:37] VITALS: BP 160/82
[2017-11-12] MEDS: ACYCLOVIR 400 MG TABLET PO SCH ×2 (07:50→16:22)
[2017-11-12] MEDS: CHLORTHALIDONE 25 MG TABLET PO SCH (07:50)
[2017-11-12] MEDS: METOPROLOL TARTRATE 25 MG TABLET PO SCH ×2 (07:51→16:22)
[2017-11-12] MEDS: METHENAMINE MANDELATE HOMEMEDPO SCH (07:53)
[2017-11-12] MEDS: SPIRONOLACTONE 25 MG TABLET PO SCH ×2 (07:53→16:26)
[2017-11-12] MEDS: URSODIOL 250 MG TABLET PO SCH ×2 (08:12→16:22)
[2017-11-12] MEDS: SODIUM CHLORIDE FLUSH 10ML SYR IVF SCH ×2 (08:13→22:11)
[2017-11-12] MEDS: TACROLIMUS 1 MG CAPSULE PO SCH ×2 (10:00→22:00)
[2017-11-12] MEDS: CEFTRIAXONE PMX 1GM/50ML 50 ML IV SCH (14:09)
[2017-11-12 15:29] VITALS: BP 150/77
[2017-11-12] MEDS: ALLOPURINOL 100 MG TABLET PO SCH (16:22)
[2017-11-12 20:00] VITALS: BP 135/78
[2017-11-13 01:13] VITALS: BP 127/68
[2017-11-13] MEDS: LACTOBACILLUS CHEW TABLET PO SCH ×2 (06:21→11:00)
[2017-11-13] MEDS: predniSOLONE OPHTH. 1%,1ML LEFTEYE SCH (06:22)
[2017-11-13] MEDS: INSULIN LISPRO 100 UNITS/ML, PEN SQ-INSULIN SCH ×2 (06:22→11:00)
[2017-11-13 07:28] VITALS: BP 139/83
[2017-11-13] MEDS ORDERED: ERGOCALCIFEROL 50,000 UNIT CAPSULE PO SCH (09:00)
[2017-11-13] MEDS: SPIRONOLACTONE 25 MG TABLET PO SCH (09:09)
[2017-11-13] MEDS: CHLORTHALIDONE 25 MG TABLET PO SCH (09:10)
[2017-11-13] MEDS: URSODIOL 250 MG TABLET PO SCH (09:10)
[2017-11-13] MEDS: SODIUM CHLORIDE FLUSH 10ML SYR IVF SCH (09:10)
[2017-11-13] MEDS: ACYCLOVIR 400 MG TABLET PO SCH (09:10)
[2017-11-13] MEDS: METHENAMINE MANDELATE HOMEMEDPO SCH (09:11)
[2017-11-13] MEDS: METOPROLOL TARTRATE 25 MG TABLET PO SCH (09:11)
[2017-11-13] MEDS: TACROLIMUS 1 MG CAPSULE PO SCH (10:35)
[2017-11-13] MEDS ORDERED: CIPR500T87 PO (11:05)
[2017-11-13] MEDS: CEFTRIAXONE PMX 1GM/50ML 50 ML IV SCH (13:30)
== END 2017-11-13 14:22 | disposition home health service (06) | DRG 871 ==
LOC: ED 11:39 → EDIP 13:55 → 4NOR 15:22 → DCLOUNGE 11-13 14:02
PROVIDERS: ADMIT Internal Medicine; ATTEND Internal Medicine
PROC: 0T9B70Z Drainage of Bladder with Drainage Device, Via Natural or Artificial Opening (ICD-10-PCS; principal; 2017-11-09)
DX: A41.9 Sepsis, unspecified organism (principal); J96.21 Acute and chronic respiratory failure with hypoxia; N12 Tubulo-interstitial nephritis, not specified as acute or chronic; I13.0 Hypertensive heart and chronic kidney disease with heart failure and stage 1 through stage 4 chronic kidney disease, or unspecified chronic kidney disease; I31.3 Pericardial effusion (noninflammatory); J98.11 Atelectasis; N17.9 Acute kidney failure, unspecified; B96.20 Unspecified Escherichia coli [E. coli] as the cause of diseases classified elsewhere; E11.22 Type 2 diabetes mellitus with diabetic chronic kidney disease; E66.01 Morbid (severe) obesity due to excess calories; D64.9 Anemia, unspecified; D69.6 Thrombocytopenia, unspecified; I50.9 Heart failure, unspecified; N18.3 Chronic kidney disease, stage 3 (moderate); Z79.899 Other long term (current) drug therapy; Z68.38 Body mass index [BMI] 38.0-38.9, adult; Z86.73 Personal history of transient ischemic attack (TIA), and cerebral infarction without residual deficits; Z87.440 Personal history of urinary (tract) infections; Z87.891 Personal history of nicotine dependence
CPT/HCPCS: 36415; 71045; 76770; 78582; 80048; 80053; 80197; 81001; 82962; 83605; 83735; 83880; 84100; 84484; 85025; 87040; 87077; 87086; 87186; 87324; 93005; 96365; J0696; J7507; A9540; A9558; C9898; J1940

== ENCOUNTER → 2017-11-23 | Outpatient (CLI) | payer MEDICARE, OTHER ==
[~2017-11-23] MED LIST changes: +CHOL500050 PO; +CIPR500T87 PO; +LACT1CAP35 PO; +SPIR25TA PO; +[UNRECOGNIZED DRUG - REMARK] EACHEYE; +ketoconazole cream TD
== END | disposition home or self-care (01) ==
LOC: CFH 12:49
PROVIDERS: ATTEND Family Medicine
DX: J91.8 Pleural effusion in other conditions classified elsewhere (principal); I51.7 Cardiomegaly
CPT/HCPCS: 71046

== ENCOUNTER → 2017-12-25 | Outpatient (CLI) | payer MEDICARE, OTHER | END | disposition home or self-care (01) | LOC: CFH 08:46 | PROVIDERS: ATTEND Internal Medicine | DX: R06.02 Shortness of breath (principal); R09.02 Hypoxemia; I11.0 Hypertensive heart disease with heart failure; I50.9 Heart failure, unspecified; E11.9 Type 2 diabetes mellitus without complications; Z94.4 Liver transplant status | CPT/HCPCS: 71250 ==

== ENCOUNTER → 2018-01-03 | Outpatient (CLI) | payer MEDICARE, OTHER ==
[~2018-01-03] MED LIST changes: +REGADENOSON 0.4 MG/5 ML SYRINGE ONE
== END | disposition home or self-care (01) ==
LOC: CFH 07:42
PROVIDERS: ATTEND Internal Medicine Cardiovascular Disease
DX: E11.9 Type 2 diabetes mellitus without complications (principal); R00.0 Tachycardia, unspecified; R06.02 Shortness of breath; I50.9 Heart failure, unspecified
CPT/HCPCS: 78452; 93017; A9502; J2785

== ENCOUNTER → 2018-02-14 | Outpatient (CLI) | payer MEDICARE, OTHER ==
[~2018-02-14] MED LIST changes: -REGADENOSON 0.4 MG/5 ML SYRINGE ONE
== END | disposition home or self-care (01) ==
LOC: CVU 12:29
PROVIDERS: ATTEND Internal Medicine Cardiovascular Disease
DX: I87.2 Venous insufficiency (chronic) (peripheral) (principal); I83.90 Asymptomatic varicose veins of unspecified lower extremity; I50.9 Heart failure, unspecified; E11.22 Type 2 diabetes mellitus with diabetic chronic kidney disease; E66.9 Obesity, unspecified; R60.0 Localized edema; M79.609 Pain in unspecified limb; Z87.891 Personal history of nicotine dependence; Z94.4 Liver transplant status
CPT/HCPCS: 93922; 93970

== ENCOUNTER → 2018-03-22 | Outpatient (CLI) | payer MEDICARE, OTHER | END | disposition home or self-care (01) | LOC: CFH 07:07 | PROVIDERS: ATTEND Internal Medicine | DX: N26.1 Atrophy of kidney (terminal) (principal); K74.69 Other cirrhosis of liver; K76.6 Portal hypertension | CPT/HCPCS: 76700 ==

== ENCOUNTER 2018-06-25 09:47 | Outpatient (CLI) | payer MEDICARE, OTHER ==
[2018-06-25] MEDS ORDERED: CHLO25TA PO (10:40)
[2018-06-25] MEDS ORDERED: ERGO500017 PO (10:40)
[2018-06-25] MEDS ORDERED: FLUO15CR7 TP (10:40)
[2018-06-25] MEDS ORDERED: ZINC56CR2 TP (10:40)
[2018-06-25] MEDS ORDERED: METO25TA35 PO (10:40)
[2018-06-25] MEDS ORDERED: LIRA0.6P SC (10:40)
== END 2018-06-25 23:59 | disposition home or self-care (01) ==
LOC: STAR 09:47
PROVIDERS: ATTEND Internal Medicine
DX: Z01.818 Encounter for other preprocedural examination (principal); K86.2 Cyst of pancreas
CPT/HCPCS: 93005

== ENCOUNTER 2018-07-03 05:28 | Day surgery (SDC) | payer MEDICARE, OTHER ==
[~2018-07-03] VITALS: Ht 149.9 cm; Wt 76.3 kg
[~2018-07-03 05:28] MED LIST changes: +FLUO15CR7 TP; +LIRA0.6P SC; +ZINC56CR2 TP
[2018-07-03] MEDS ORDERED: SODIUM CHLORIDE 0.9% 1,000 ML IV SCH (06:23)
[2018-07-03 06:24] VITALS: BP 158/84
[2018-07-03] MEDS ORDERED: PROPOFOL 50 ML ONE ×2 (07:35→07:36)
[2018-07-03] MEDS ORDERED: CEFAZOLIN 1,000 MG ONE (07:55)
[2018-07-03] MEDS ORDERED: LIDOCAINE 2% 100MG/5ML SYRINGE ONE (07:55)
[2018-07-03] MEDS ORDERED: FENTANYL PF 100 MCG/2ML IV PRN (08:30)
[2018-07-03] MEDS ORDERED: METOPROLOL 1 MG/ML, 5ML IV PRN (08:30)
[2018-07-03] MEDS ORDERED: ONDANSETRON 2MG/ML, 2ML IV PRN (08:30)
[2018-07-03] MEDS ORDERED: LABETALOL 5MG/ML, 20ML IV PRN (08:30)
[2018-07-03] MEDS ORDERED: hydrALAzine 20 MG/ML, 1ML IV PRN (08:30)
== END 2018-07-03 10:20 | disposition home or self-care (01) ==
LOC: OUT 05:28
PROVIDERS: ATTEND Internal Medicine
DX: K86.2 Cyst of pancreas (principal); I85.00 Esophageal varices without bleeding; K76.6 Portal hypertension; K31.89 Other diseases of stomach and duodenum; E11.9 Type 2 diabetes mellitus without complications; I11.0 Hypertensive heart disease with heart failure; I50.9 Heart failure, unspecified; D64.9 Anemia, unspecified; K74.3 Primary biliary cirrhosis; Z98.890 Other specified postprocedural states; Z98.51 Tubal ligation status; Z96.659 Presence of unspecified artificial knee joint; Z90.721 Acquired absence of ovaries, unilateral; Z85.828 Personal history of other malignant neoplasm of skin; Z86.73 Personal history of transient ischemic attack (TIA), and cerebral infarction without residual deficits; Z79.84 Long term (current) use of oral hypoglycemic drugs; Z88.1 Allergy status to other antibiotic agents; Z88.8 Allergy status to other drugs, medicaments and biological substances
CPT/HCPCS: 43242; 82962; J0690; J2704

== ENCOUNTER → 2018-08-17 | Outpatient (CLI) | payer MEDICARE, OTHER | END | disposition home or self-care (01) | LOC: CFH 08:39 | PROVIDERS: ATTEND Family Medicine | DX: Z12.31 Encounter for screening mammogram for malignant neoplasm of breast (principal) | CPT/HCPCS: 77067 ==

== ENCOUNTER → 2018-09-12 | Outpatient (CLI) | payer MEDICARE, OTHER ==
[~2018-09-12] MED LIST changes: +KETO15CR17 TP; -KETO15CR2 TP
== END | disposition home or self-care (01) ==
LOC: CFH 13:14
PROVIDERS: ATTEND Family Medicine
DX: R92.1 Mammographic calcification found on diagnostic imaging of breast (principal)
CPT/HCPCS: 77065; G0279

== ENCOUNTER 2018-12-27 06:22 | Outpatient (CLI) | payer MEDICARE, OTHER ==
[~2018-12-27] VITALS: Ht 149.9 cm; Wt 73.9 kg
[~2018-12-27 06:22] MED LIST changes: -URSO500T8 PO; +URSO500T9 PO
[2018-12-27 10:25] VITALS: BP 138/74
[2018-12-27] MEDS ORDERED: FERRIC CARBOXYMALTOSE 750 MG in SODIUM CHLORIDE 0.9% 250 ML IV ONE (11:00)
[2018-12-27] MEDS ORDERED: IRON1TAB37 PO (11:17)
[2019-01-03 10:02] VITALS: BP 150/69
== END 2018-12-27 23:59 | disposition home or self-care (01) ==
LOC: INFUSION 06:22
PROVIDERS: ATTEND Internal Medicine Nephrology
DX: D64.9 Anemia, unspecified (principal); I12.9 Hypertensive chronic kidney disease with stage 1 through stage 4 chronic kidney disease, or unspecified chronic kidney disease; E11.22 Type 2 diabetes mellitus with diabetic chronic kidney disease; N18.3 Chronic kidney disease, stage 3 (moderate); E78.5 Hyperlipidemia, unspecified; Z90.49 Acquired absence of other specified parts of digestive tract; Z90.89 Acquired absence of other organs; Z87.891 Personal history of nicotine dependence; Z94.4 Liver transplant status
CPT/HCPCS: 96365; J1439; J7050

== ENCOUNTER 2019-01-03 09:58 | Outpatient (CLI) | payer MEDICARE, OTHER ==
[~2019-01-03] VITALS: Ht 149.9 cm; Wt 73.9 kg
[2019-01-03 10:47] VITALS: BP 150/69
== END 2019-01-03 23:59 | disposition home or self-care (01) ==
LOC: INFUSION 09:58
PROVIDERS: ATTEND Internal Medicine Nephrology
DX: D64.9 Anemia, unspecified (principal); I12.9 Hypertensive chronic kidney disease with stage 1 through stage 4 chronic kidney disease, or unspecified chronic kidney disease; E11.22 Type 2 diabetes mellitus with diabetic chronic kidney disease; N18.3 Chronic kidney disease, stage 3 (moderate); E78.5 Hyperlipidemia, unspecified; Z94.4 Liver transplant status; Z90.49 Acquired absence of other specified parts of digestive tract; Z87.891 Personal history of nicotine dependence; Z90.89 Acquired absence of other organs
CPT/HCPCS: 96365; J1439; J7050

== ENCOUNTER → 2019-03-28 | Outpatient (CLI) | payer MEDICARE, OTHER ==
[~2019-03-28] MED LIST changes: +ESTR42.53 VG; +IRON1TAB37 PO; +Iron PO; +MINE3.5O2 EACHEYE; +NYST15CR2 TP; +NYST15CR33 TP; +TACR0.5C4 PO
== END | disposition home or self-care (01) ==
LOC: STAR 09:04
PROVIDERS: ATTEND Orthopaedic Surgery
DX: S80.01XA Contusion of right knee, initial encounter (principal); M17.12 Unilateral primary osteoarthritis, left knee; M25.562 Pain in left knee; Z96.659 Presence of unspecified artificial knee joint; M51.36 Other intervertebral disc degeneration, lumbar region; M54.5 Low back pain; M17.9 Osteoarthritis of knee, unspecified; X58.XXXA Exposure to other specified factors, initial encounter; Y93.89 Activity, other specified; Y92.89 Other specified places as the place of occurrence of the external cause; Y99.8 Other external cause status; E11.9 Type 2 diabetes mellitus without complications; K21.9 Gastro-esophageal reflux disease without esophagitis; Z79.899 Other long term (current) drug therapy
CPT/HCPCS: 87081; 87147; 93005

== ENCOUNTER → 2019-07-31 | Outpatient (CLI) | payer MEDICARE, OTHER | END | disposition home or self-care (01) | LOC: CFH 07:18 | PROVIDERS: ATTEND Internal Medicine | DX: R16.1 Splenomegaly, not elsewhere classified (principal); N26.1 Atrophy of kidney (terminal); K76.89 Other specified diseases of liver; Z78.0 Asymptomatic menopausal state; Z90.49 Acquired absence of other specified parts of digestive tract; Z94.4 Liver transplant status | CPT/HCPCS: 76700; 77080 ==

== ENCOUNTER → 2019-10-05 | Outpatient (CLI) | payer MEDICARE, OTHER ==
[2019-10-05 07:37] LABS: ALANINE AMINOTRANSFERASE 17 U/L (12-78); ALBUMIN 3.2 g/dL (3.4-5.0); ANION GAP 7 mmol/L (5-15); CALCIUM 9.7 mg/dL (8.5-10.1); CHLORIDE 109 mmol/L (98-107); CREATININE 1.33 mg/dL (0.55-1.02); GAMMA GLUTAMYL TRANSPEPTIDASE 38 U/L (5-55)
[2019-10-05 07:39] LABS: ALKALINE PHOSPHATASE 131 U/L (45-117); TOTAL PROTEIN 7.4 g/dL (6.4-8.2)
[2019-10-05 07:44] LABS: MEAN CORPUSCULAR HEMOGLOBIN 34.2 pg (27.0-34.8); MEAN CORPUSCULAR HGB CONC 32.5 g/dL (32.4-35.8); MEAN CORPUSCULAR VOLUME 105.1 fL (80-100); MEAN PLATELET VOLUME 8.7 fL (7.4-10.4); PLATELET COUNT 61 x10^3/uL (130-400); RED BLOOD COUNT 3.95 x10^6/uL (3.82-5.3); RED CELL DISTRIBUTION WIDTH 15.8 % (9.6-15.2)
[2019-10-05 08:20] LABS: BASOPHILS # (AUTO) 0.05 x10^3/uL (0-0.1); BASOPHILS % (AUTO) 2 % (0-1); EOSINOPHILS # (AUTO) 0.18 x10^3/uL (0-0.4); EOSINOPHILS % (AUTO) 5 % (1-7); LYMPHOCYTES # (AUTO) 0.43 x10^3/uL (1-3.4); LYMPHOCYTES % (AUTO) 12 % (22-44); MD SCAN; MONOCYTES # (AUTO) 0.25 x10^3/uL (0.2-0.8); MONOCYTES % (AUTO) 7 % (2-9); NEUTROPHILS # (AUTO) 2.77 x10^3/uL (1.8-6.8); NEUTROPHILS % (AUTO) 75 % (42-75)
== END | disposition home or self-care (01) ==
LOC: LAB 07:04
PROVIDERS: ATTEND Family Medicine
DX: Z94.4 Liver transplant status (principal)
CPT/HCPCS: 36415; 80053; 80197; 82977; 83735; 85025

== ENCOUNTER → 2019-11-01 | Outpatient (CLI) | payer MEDICARE, OTHER ==
[~2019-11-01] MED LIST changes: +BETA15OI3 EACHEYE; +FLUO15CR TP; -FLUO15CR7 TP; +NYST15CR TP; -NYST15CR33 TP; -TACR1CAP4 PO; +TACR1CAP5 PO; +[UNRECOGNIZED DRUG - CODE] EACHEYE
[2019-11-01 15:27] LABS: ALANINE AMINOTRANSFERASE 21 U/L (12-78); ALBUMIN 3.2 g/dL (3.4-5.0); ANION GAP 7 mmol/L (5-15); CALCIUM 9.3 mg/dL (8.5-10.1); CHLORIDE 107 mmol/L (98-107)
[2019-11-01 15:30] LABS: ALKALINE PHOSPHATASE 118 U/L (45-117)
[2019-11-01 17:30] LABS: MEAN CORPUSCULAR HEMOGLOBIN 34.5 pg (27.0-34.8); MEAN CORPUSCULAR HGB CONC 32.7 g/dL (32.4-35.8); MEAN CORPUSCULAR VOLUME 105.4 fL (80-100); MEAN PLATELET VOLUME 8.9 fL (7.4-10.4); PLATELET COUNT 51 x10^3/uL (130-400); RED BLOOD COUNT 3.72 x10^6/uL (3.82-5.3); RED CELL DISTRIBUTION WIDTH 16.1 % (9.6-15.2)
[2019-11-01 17:31] LABS: MD YES
[2019-11-01 17:34] LABS: BAND#(MANUAL) 0.04 x10^3/uL; BANDS%(MANUAL) 1 % (0-7); EOS#(MANUAL) 0.15 x10^3/uL (0.0-0.4); EOS% (MANUAL) 4 % (1-7); LYMPH#(MANUAL) 0.34 x10^3/uL (1-3.4); LYMPHS% (MANUAL) 9 % (22-44); MONOS% (MANUAL) 8 % (2-9); SEG#(MANUAL) 2.96 x10^3/uL (1.8-6.8); SEGS% (MANUAL) 78 % (42-75)
[2019-11-01 17:36] LABS: <PLATELET ESTIMATE> DECREASED; <PLT MORPHOLOGY> NORMAL PLT MORPH
== END | disposition home or self-care (01) ==
LOC: STAR 13:49
PROVIDERS: ATTEND Orthopaedic Surgery
DX: Z01.818 Encounter for other preprocedural examination (principal); M17.12 Unilateral primary osteoarthritis, left knee; M25.562 Pain in left knee
CPT/HCPCS: 36415; 80053; 85025; 87081; 87147; 93005

== ENCOUNTER 2019-11-20 11:06 | Observation (INO) | payer MEDICARE, OTHER ==
[2019-11-01 14:39] VITALS: BP 147/74
[~2019-11-20] VITALS: Ht 180.3 cm; Wt 70.4 kg
[~2019-11-20 11:06] MED LIST changes: +KETOROLAC 60 MG/2 ML ONE; +ROPIvacaine/PF 0.2%, 20 ML ONE; +SODIUM CHLORIDE 0.9% 50 ML ONE; +TRANEXAMIC ACID 100 MG/ML, 10ML ONE; +VANCOMYCIN 1,000 MG ONE
[2019-11-20] MEDS ORDERED: LACTATED RINGERS 1,000 ML IV SCH (11:37)
[2019-11-20] MEDS ORDERED: FENTANYL PF 250 MCG/5ML ONE (11:46)
[2019-11-20] MEDS ORDERED: MIDAZOLAM 1 MG/ML, 2ML ONE (11:46)
[2019-11-20] MEDS ORDERED: [UNRECOGNIZED DRUG - CODE] PO (11:49)
[2019-11-20] MEDS ORDERED: CHLORHEXIDINE 15 ML UDC MM ONE (12:00)
[2019-11-20] MEDS ORDERED: DEXAMETHASONE 4 MG/ML, 1ML ONE (13:55)
[2019-11-20] MEDS ORDERED: CEFAZOLIN 1,000 MG ONE (13:55)
[2019-11-20] MEDS ORDERED: ONDANSETRON 2MG/ML, 2ML ONE ×2 (13:55→16:57)
[2019-11-20] MEDS ORDERED: LIDOCAINE-MPF 2% ,5ML ONE (13:55)
[2019-11-20] MEDS ORDERED: BUPIVACAINE/PF 0.25% ONE (13:55)
[2019-11-20] MEDS ORDERED: PROPOFOL 10 MG/ML, 20ML ONE (13:55)
[2019-11-20] MEDS ORDERED: hydrALAzine 20 MG/ML, 1ML IV PRN ×2 (14:00→20:00)
[2019-11-20] MEDS ORDERED: MEPERIDINE/PF 25MG/0.5ML IVPush PRN (14:00)
[2019-11-20] MEDS ORDERED: LORazepam 2 MG/ML, 1ML IVPush PRN (14:00)
[2019-11-20] MEDS ORDERED: PROMETHAZINE 25 MG/ML, 1ML IVPush PRN (14:00)
[2019-11-20] MEDS ORDERED: LABETALOL 5MG/ML, 20ML IV PRN (14:00)
[2019-11-20] MEDS ORDERED: OXYcodone 5 MG/5 ML ORAL.SOL UDC PO PRN (14:00)
[2019-11-20] MEDS ORDERED: ALBUTEROL SULFATE 2.5 MG/3 ML NPPB PRN (14:00)
[2019-11-20] MEDS ORDERED: DIPHENHYDRAMINE 50 MG CAPSULE PO PRN (15:00)
[2019-11-20] MEDS ORDERED: ZOLPIDEM 5MG TABLET PO PRN (15:00)
[2019-11-20] MEDS ORDERED: HYDROmorphone 1 MG/ML, 1ML INJ IVPush PRN (15:00)
[2019-11-20] MEDS ORDERED: ONDANSETRON 4 MG TABLET PO PRN (15:00)
[2019-11-20] MEDS ORDERED: ALUMINUM/MAG/SIMETHICONE 30 ML UDC PO PRN (15:00)
[2019-11-20] MEDS ORDERED: PSYLLIUM PACKET PO PRN (15:00)
[2019-11-20] MEDS ORDERED: DIAZEPAM 5 MG TABLET PO PRN (15:00)
[2019-11-20] MEDS ORDERED: POLYETHYLENE GLYCOL 17 GM PACKET PO PRN (15:00)
[2019-11-20] MEDS ORDERED: SENNA/DOCUSATE TABLET PO PRN (15:00)
[2019-11-20] MEDS ORDERED: PROMETHAZINE 12.5 MG SUPP PR PRN (15:00)
[2019-11-20] MEDS ORDERED: MAGNESIUM HYDROXIDE 8%, 30ML UDC PO PRN (15:00)
[2019-11-20] MEDS ORDERED: PROMETHAZINE 25 MG/ML, 1ML IM PRN (15:00)
[2019-11-20] MEDS: ACETAMINOPHEN 500 MG TABLET PO SCH (15:00)
[2019-11-20] MEDS ORDERED: BISACODYL 10 MG SUPP PR PRN (15:00)
[2019-11-20] MEDS ORDERED: FENTANYL PF 100 MCG/2ML ONE ×2 (15:08→15:46)
[2019-11-20] MEDS ORDERED: OXYcodone 5 MG/5 ML ORAL.SOL UDC ONE ×2 (15:08→16:25)
[2019-11-20] MEDS: FENTANYL PF 100 MCG/2ML IV PRN ×4 (15:10→15:45)
[2019-11-20] MEDS ORDERED: TRANEXAMIC ACID 1,000 MG in SODIUM CHLORIDE 0.9% 100 ML IVPB ONE (15:15)
[2019-11-20] MEDS ORDERED: DIAZEPAM 5 MG TABLET ONE (15:30)
[2019-11-20 15:57] LABS: MD YES; MEAN CORPUSCULAR HEMOGLOBIN 34.6 pg (27.0-34.8); MEAN CORPUSCULAR HGB CONC 32.8 g/dL (32.4-35.8); MEAN CORPUSCULAR VOLUME 105.4 fL (80-100); MEAN PLATELET VOLUME 8.6 fL (7.4-10.4); PLATELET COUNT 62 x10^3/uL (130-400); RED BLOOD COUNT 3.65 x10^6/uL (3.82-5.3); RED CELL DISTRIBUTION WIDTH 16.4 % (9.6-15.2)
[2019-11-20] MEDS ORDERED: ICN URSODIOL 20 MG/ML ORAL PO SCH (16:00)
[2019-11-20 16:02] LABS: <PLATELET ESTIMATE> DECREASED; <PLT MORPHOLOGY> NORMAL PLT MORPH; EOS#(MANUAL) 0.07 x10^3/uL (0.0-0.4); EOS% (MANUAL) 2 % (1-7); LYMPH#(MANUAL) 0.22 x10^3/uL (1-3.4); LYMPHS% (MANUAL) 6 % (22-44); MONOS#(MANUAL) 0.07 x10^3/uL (0.3-2.7); MONOS% (MANUAL) 2 % (2-9); SEG#(MANUAL) 3.33 x10^3/uL (1.8-6.8); SEGS% (MANUAL) 90 % (42-75)
[2019-11-20] MEDS: HYDROmorphone 1 MG/ML, 1ML INJ IVPush PRN ×3 (16:15→17:04)
[2019-11-20] MEDS ORDERED: HYDROmorphone 1 MG/ML, 1ML INJ ONE (16:15)
[2019-11-20 17:00] VITALS: BP 158/79
[2019-11-20] MEDS: CALCIUM/VITAMIN D3 250-125 TABLET PO SCH (17:00)
[2019-11-20] MEDS: ONDANSETRON 2MG/ML, 2ML IV PRN (17:02)
[2019-11-20] MEDS: FERROUS SULFATE 325 MG TABLET PO SCH (17:08)
[2019-11-20] MEDS ORDERED: URSODIOL 250 MG TABLET PO SCH (17:23)
[2019-11-20 18:47] VITALS: BP 129/84
[2019-11-20] MEDS: SODIUM CHLORIDE 0.9% 1,000 ML IV SCH (19:29)
[2019-11-20] MEDS: ERGOCALCIFEROL 50,000 UNIT CAPSULE PO SCH ×2 (19:31→19:32)
[2019-11-20 20:01] LABS: BASOPHILS # (AUTO) 0.01 x10^3/uL (0-0.1); BASOPHILS % (AUTO) 0 % (0-1); EOSINOPHILS # (AUTO) 0.01 x10^3/uL (0-0.4); EOSINOPHILS % (AUTO) 0 % (1-7); LYMPHOCYTES # (AUTO) 0.15 x10^3/uL (1-3.4); LYMPHOCYTES % (AUTO) 4 % (22-44); MD SCAN; MEAN CORPUSCULAR HEMOGLOBIN 34.5 pg (27.0-34.8); MEAN CORPUSCULAR VOLUME 104.6 fL (80-100); MEAN PLATELET VOLUME 8.6 fL (7.4-10.4); MONOCYTES # (AUTO) 0.06 x10^3/uL (0.2-0.8); MONOCYTES % (AUTO) 2 % (2-9); NEUTROPHILS # (AUTO) 3.59 x10^3/uL (1.8-6.8); NEUTROPHILS % (AUTO) 94 % (42-75); PLATELET COUNT 56 x10^3/uL (130-400); RED BLOOD COUNT 3.45 x10^6/uL (3.82-5.3); RED CELL DISTRIBUTION WIDTH 16.7 % (9.6-15.2)
[2019-11-20] MEDS: BETAMETHASONE DIPROPIONATE EACHEYE SCH (20:58)
[2019-11-20] MEDS ORDERED: ARTIFICIAL TEARS OINT 3.5 GM EACHEYE SCH (21:00)
[2019-11-20] MEDS ORDERED: TACROLIMUS 0.5 MG CAPSULE PO SCH (21:00)
[2019-11-20] MEDS ORDERED: LIRAGLUTIDE 0.6 MG SC SCH (21:00)
[2019-11-20] MEDS: DOCUSATE 100 MG CAPSULE PO SCH (21:04)
[2019-11-20] MEDS: METOPROLOL TARTRATE 25 MG TAB PO SCH (21:05)
[2019-11-20] MEDS: ACYCLOVIR 400 MG TABLET PO SCH (21:06)
[2019-11-20] MEDS: OXYcodone IR 5MG TABLET PO PRN (21:14)
[2019-11-20] MEDS: CEFAZOLIN PMX 1GM/50ML 50 ML IVPB SCH (21:21)
[2019-11-20 22:33] VITALS: BP 154/80
[2019-11-20 22:48] VITALS: BP 144/80
[2019-11-21] MEDS: ACETAMINOPHEN 500 MG TABLET PO SCH ×2 (00:13→07:46)
[2019-11-21 00:15] VITALS: BP 154/86
[2019-11-21 00:27] VITALS: BP 154/86
[2019-11-21 01:30] VITALS: BP 151/80
[2019-11-21] MEDS: OXYcodone IR 5MG TABLET PO PRN (03:06)
[2019-11-21 03:27] VITALS: BP 125/72
[2019-11-21] MEDS: CEFAZOLIN PMX 1GM/50ML 50 ML IVPB SCH (05:13)
[2019-11-21 05:39] LABS: MEAN CORPUSCULAR HEMOGLOBIN 33.7 pg (27.0-34.8); MEAN CORPUSCULAR HGB CONC 32.3 g/dL (32.4-35.8); MEAN CORPUSCULAR VOLUME 104.5 fL (80-100); MEAN PLATELET VOLUME 9.4 fL (7.4-10.4); PLATELET COUNT 69 x10^3/uL (130-400); RED BLOOD COUNT 3.25 x10^6/uL (3.82-5.3); RED CELL DISTRIBUTION WIDTH 16.7 % (9.6-15.2)
[2019-11-21 05:43] LABS: ALBUMIN 2.9 g/dL (3.4-5.0); ANION GAP 7 mmol/L (5-15); CALCIUM 8.9 mg/dL (8.5-10.1); CHLORIDE 110 mmol/L (98-107); CREATININE 1.07 mg/dL (0.55-1.02)
[2019-11-21 05:56] LABS: BASOPHILS % (AUTO) 0 % (0-1); EOSINOPHILS % (AUTO) 0 % (1-7); LYMPHOCYTES # (AUTO) 0.24 x10^3/uL (1-3.4); LYMPHOCYTES % (AUTO) 5 % (22-44); MD SCAN; MONOCYTES # (AUTO) 0.34 x10^3/uL (0.2-0.8); MONOCYTES % (AUTO) 7 % (2-9); NEUTROPHILS % (AUTO) 87 % (42-75)
[2019-11-21] MEDS ORDERED: DEXAMETHASONE 4 MG/ML, 1ML IVPush ONE (06:00)
[2019-11-21] MEDS: FERROUS SULFATE 325 MG TABLET PO SCH (07:47)
[2019-11-21] MEDS: ACYCLOVIR 400 MG TABLET PO SCH (07:55)
[2019-11-21] MEDS: DOCUSATE 100 MG CAPSULE PO SCH (07:55)
[2019-11-21] MEDS: METOPROLOL TARTRATE 25 MG TAB PO SCH (07:56)
[2019-11-21] MEDS: BETAMETHASONE DIPROPIONATE EACHEYE SCH (07:57)
[2019-11-21] MEDS: CALCIUM/VITAMIN D3 250-125 TABLET PO SCH (08:00)
[2019-11-21] MEDS: ONDANSETRON 2MG/ML, 2ML IV PRN (08:02)
[2019-11-21] MEDS: SODIUM CHLORIDE 0.9% 1,000 ML IV SCH (08:04)
[2019-11-21 08:18] VITALS: BP 128/73
[2019-11-21] MEDS ORDERED: METHENAMINE HIPPURATE 1 GM TABLET PO SCH (09:00)
[2019-11-21] MEDS ORDERED: ALLOPURINOL 100 MG TABLET PO SCH (09:00)
[2019-11-21] MEDS ORDERED: NYSTATIN CRM 15GM TP SCH (09:00)
[2019-11-21] MEDS ORDERED: CHLORTHALIDONE 25 MG TABLET PO SCH (09:00)
[2019-11-21] MEDS ORDERED: NYSTATIN/TRIAMCINOLONE CRM 15GM TP SCH (09:00)
[2019-11-21] MEDS ORDERED: MULTIVITAMINS/MINERALS TABLET PO SCH (09:00)
[2019-11-21] MEDS ORDERED: URSODIOL 250 MG TABLET PO SCH (09:00)
[2019-11-21] MEDS ORDERED: LIRAGLUTIDE 0.6 MG SC SCH (09:00)
[2019-11-21] MEDS ORDERED: ASCORBIC ACID 500 MG TABLET PO SCH (09:00)
[2019-11-21] MEDS ORDERED: PANTOPRAZOLE 20MG TABLET PO SCH (09:00)
[2019-11-21] MEDS ORDERED: TACROLIMUS 1 MG CAPSULE PO SCH (09:00)
== END 2019-11-21 11:50 | disposition home or self-care (01) ==
LOC: OUT 11:06 → ORIP 14:47 → 4NE 16:48 → DCLOUNGE 11-21 11:42
PROVIDERS: ADMIT Orthopaedic Surgery; ATTEND Orthopaedic Surgery
DX: Z03.818 Encounter for observation for suspected exposure to other biological agents ruled out (principal); M17.12 Unilateral primary osteoarthritis, left knee; D69.6 Thrombocytopenia, unspecified; D75.89 Other specified diseases of blood and blood-forming organs; D72.810 Lymphocytopenia; I12.9 Hypertensive chronic kidney disease with stage 1 through stage 4 chronic kidney disease, or unspecified chronic kidney disease; E11.22 Type 2 diabetes mellitus with diabetic chronic kidney disease; N18.3 Chronic kidney disease, stage 3 (moderate); M10.9 Gout, unspecified; Z87.19 Personal history of other diseases of the digestive system; Z87.448 Personal history of other diseases of urinary system; Z94.4 Liver transplant status; Z79.899 Other long term (current) drug therapy; Z90.710 Acquired absence of both cervix and uterus; Z96.653 Presence of artificial knee joint, bilateral
CPT/HCPCS: 27447; 36415; 36430; 73560; 80069; 82962; 83735; 85025; 86850; 86900; 87635; 96365; 96366; 96372; 96375; 96376; 97163; 97165; C1713; C1776; G0378; J0690; J1100; J1170; J2250; J2405; J2704; J2795; J3010; J3370; J3490; J7120; J7507; P9035; J1885